=== PATIENT | female | born 1985 | race African-American/Black ===

== ENCOUNTER 2017-03-07 15:09 | Emergency (ER) | payer OTHER ==
[~2017-03-07] VITALS: Ht 170.2 cm; Wt 79.0 kg
[~2017-03-07 15:09] MED LIST: VIGAMOX 0.60 DROP/3 RIGHT EYE
[2017-03-07 15:39] VITALS: BP 139/81
== END 2017-03-07 16:51 | disposition home or self-care (01) ==
LOC: EME 15:09
DX: H10.9 Unspecified conjunctivitis (principal)
CPT/HCPCS: 99281; 99284

== ENCOUNTER 2018-03-28 09:09 | Emergency (ER) | payer OTHER ==
[~2018-03-28] VITALS: Ht 170.2 cm; Wt 88.8 kg
[2018-03-28 10:31] VITALS: BP 126/92
== END 2018-03-28 10:36 | disposition home or self-care (01) ==
LOC: EME 09:09
DX: I26.99 Other pulmonary embolism without acute cor pulmonale (principal); Z86.711 Personal history of pulmonary embolism; Z79.01 Long term (current) use of anticoagulants
CPT/HCPCS: 93005; 99281; 99284